=== PATIENT | male | born 1980 | race Caucasian/White ===

== ENCOUNTER 2019-04-23 20:36 | Emergency (ER) | payer SELFPAY ==
[~2019-04-23] VITALS: Ht 165.1 cm; Wt 218.0 kg
[2019-04-23] MEDS ORDERED: PROPARACAINE HCL 0.5% 15 ML OPHTHALMIC SOLUTION OU ONE (21:30)
[2019-04-23] MEDS ORDERED: FLUORESCEIN SODIUM 1 MG STRIP OD ONE (21:30)
[2019-04-23] MEDS ORDERED: ERYTHROMYCIN 0.5% 3.5 GM TUBE OPHTHALMIC OINTMENT ONE (21:45)
[2019-04-23 22:00] VITALS: BP 132/89
== END 2019-04-23 22:51 | disposition home or self-care (01) ==
LOC: EMS 20:40
DX: S05.02XA Injury of conjunctiva and corneal abrasion without foreign body, left eye, initial encounter (principal); X58.XXXA Exposure to other specified factors, initial encounter; Y93.89 Activity, other specified; Y92.89 Other specified places as the place of occurrence of the external cause; Y99.8 Other external cause status